=== PATIENT | male | born 1965 | race Caucasian/White ===

== ENCOUNTER 2016-02-26 00:14 | Inpatient (IN) | payer OTHER ==
[~2016-02-26] VITALS: Ht 172.7 cm; Wt 83.0 kg
[2016-02-26] VITALS (11 sets, daily range): BP systolic 110–132; BP diastolic 60–77; PULSE 75–93; RESP 20; Ht 172.7 cm; Wt 83.0 kg
[~2016-02-26 00:14] MED LIST: HTN; [UNRECOGNIZED DRUG - REMARK]
[2016-02-26] MEDS ORDERED: morphine 2 MG INJ IV PRN (03:00)
[2016-02-26] MEDS ORDERED: ONDANSETRON 4 MG INJ IV PRN (03:00)
[2016-02-26] MEDS ORDERED: DOCUSATE SODIUM 100 MG CAP PO PRN (03:00)
[2016-02-26] MEDS ORDERED: ACETAMINOPHEN 325 MG TAB PO PRN (03:00)
[2016-02-26] MEDS ORDERED: NACL 0.9% 3 ML SYG IV SCH (03:00)
[2016-02-26] MEDS ORDERED: HYDROCODONE/APAP (5/325) TAB PO PRN (03:00)
[2016-02-26] MEDS ORDERED: ZOLPIDEM 5 MG TAB PO PRN (03:00)
[2016-02-26] MEDS ORDERED: NITROGLYCERIN (SL) 0.4 MG TAB SL PRN (03:00)
[2016-02-26 06:15] LABS: HEMATOCRIT 22.4 % (42.0-52.0); HEMOGLOBIN 7.2 g/dl (14.0-18.0); MEAN CORPUSCULAR HEMOGLOBIN 21.4 pg (29.0-33.0); MEAN CORPUSCULAR HGB CONC 32.2 g/dl (32.0-37.0); MEAN CORPUSCULAR VOLUME 66.5 fl (82.0-101.0); MEAN PLATELET VOLUME 10.2 fl (7.4-10.4); PLATELET COUNT 160 10^3/UL (140-440); RED BLOOD COUNT 3.36 10^6/ul (4.70-6.10); RED CELL DISTRIBUTION WIDTH 23.4 % (11.5-14.5); UNCORRECTED WBC 4.3 10^3/ul (4.8-10.8); WHITE BLOOD COUNT 4.3 10^3/ul (4.8-10.8)
[2016-02-26 06:26] LABS: ALBUMIN 3.5 g/dl (3.3-4.9); CHLORIDE 107 mmol/L (97-110); SODIUM 142 mmol/L (135-144)
[2016-02-26 06:27] LABS: POTASSIUM 4.3 mmol/L (3.5-5.1)
[2016-02-26 06:28] LABS: CHOLESTEROL 117 mg/dl (100-200); CREATININE 0.92 mg/dl (0.61-1.24)
[2016-02-26 06:29] LABS: ALANINE AMINOTRANSFERASE 39 IU/L (13-69); ALKALINE PHOSPHATASE 71 IU/L (42-121); ASPARTATE AMINO TRANSFERASE 29 IU/L (15-46); BILIRUBIN,INDIRECT 2.3 mg/dl (0-1.1); BILIRUBIN,TOTAL 2.3 mg/dl (0.2-1.3); BLOOD UREA NITROGEN 22 mg/dl (7-20); CALCIUM 8.2 mg/dl (8.4-10.2); CARBON DIOXIDE 25 mmol/L (21-31); GLUCOSE 99 mg/dl (70-220); TOTAL PROTEIN 6.4 g/dl (6.1-8.1); TRIGLYCERIDES 103 mg/dl (0-149)
[2016-02-26 06:30] LABS: CHOL/HDL RATIO 4.8 RATIO; HDL CHOLESTEROL 24 mg/dl (28-71); MAGNESIUM 2.1 mg/dl (1.7-2.5)
[2016-02-26 06:44] LABS: CONDITION 1; LH ANALYZER COMMENTS 1
[2016-02-26 06:54] LABS: ANION GAP 14 (8-16)
[2016-02-26 09:47] LABS: IRON 65 ug/dl (35-150)
[2016-02-26 09:57] LABS: TOTAL IRON BINDING CAPACITY 449 ug/dl (241-421)
--- NOTE | 2016-02-26 10:03 | HP ---
DATE OF ADMISSION: 02/26/2016 TIME: 7:30 a.m. CHIEF COMPLAINT: Chest pain. HISTORY OF PRESENT ILLNESS: The patient is a 50-year-old male with no medical history. The patient presents with pressure-like chest pain in his left sternal border. No radiation. The patient has had no previous such symptoms in the past. He has no cardiac history. He has no reported medical h istory. The patient was at [facility] where he was noted to be pancytopenic with a white count 3 .8, hemoglobin of 5.8. The patient has no history of any known anemia. Denies any GI bleed, any me tavon, any nausea, vomiting. He states for now that his chest pain is resolved. PAST MEDICAL HISTORY: Denies. PAST SURGICAL HISTORY: Denies. HOME MEDICATIONS: None. ALLERGIES: NO KNOWN DRUG ALLERGIES. FAMILY HISTORY: Denies. SOCIAL HISTORY: Denies any alcohol, tobacco, or drug abuse. REVIEW OF SYSTEMS: A 12-point review of systems negative except for that discussed in HPI. PHYSICAL EXAMINATION: VITAL SIGNS: Temperature is 97.8, pulse 75, respiratory rate 20, blood pressure 119/60, saturation 98% on room air. GENERAL: No acute distress, alert and oriented. HEENT: Normocephalic, atraumatic. LUNGS: Clear to auscultation. CARDIOVASCULAR: Regular rate and rhythm. ABDOMEN: Nondistended, nontender, soft. EXTREMITIES: No clubbing, cyanosis, or edema. LABORATORIES: At [facility] show a hemoglobin of 5.8, hematocrit 19.9, MCV is 62, platelets 156. C hemistry: Sodium is 137, potassium is 4.3, chloride is 102, BUN is 21, creatinine is 0.9, glucose 1 23, anion gap 12. DIAGNOSTICS: EKG shows normal sinus rhythm, no signs of ischemia. Chest x-ray shows atelectasis. ASSESSMENT AND PLAN: 1. Chest pain. The patient has no significant risk factors for acute coronary syndrome. His chest pain is likely secondary to his anemia. So far there are no signs of acute coronary syndrome with first troponin at [facility] being negative. Troponin in house here at this time is also negative. We will follow up on the 3rd troponin and will also get a 2D echo. 2. Anemia. Etiology is unclear at this time. He denies any gastrointestinal bleeding. His MCV is low. We will check an iron panel. We will check a stool occult blood. The patient has no history of anemia in the past. 3. Leukopenia. This is mild. We will monitor. We will check human immunodeficiency virus level a nd hepatitis panel. 4. Prophylaxis: Serial compression devices. Dictated By: SAULO KLEIN MD BS/NTS Conf#: [id number] DID#: [id number]
[2016-02-26 10:45] LABS: FOLATE 11.2 ng/ml (2.8-20.0)
[2016-02-26 11:10] LABS: HEPATITIS B CORE ANTIBODY NEGATIVE (NEGATIVE)
[2016-02-26 13:00] LABS: EOSINOPHILS # 0.1 10^3/ul (0.0-0.5); LYMPHOCYTES # 0.9 10^3/ul (0.8-2.9); MONOCYTE # 0.5 10^3/ul (0.3-0.9); NEUTROPHIL # 2.8 10^3/ul (1.6-7.5)
--- NOTE | 2016-02-26 16:46 | RADRPT ---
Echocardiogram Report Patient Name: ROB ELISE Gender: Male Date: 1965 Study Date: 26-Feb-2016 Full Stack Python Developer: Shavon Spicer [facility] Location: [id number] Ref. Physician: SAULO KLEIN Quality: Good Procedures: Transthoracic echocardiogram with complete 2D, M-Mode, and doppler examination. Indications: Chest Pain. 2D/M Mode Doppler Measurement Value Normal Ranges Measurement Value Normal Ranges LVIDd 2D 5.5 3.5 - 5.6 cm AV Peak Noam 1.4 m/sec LVIDs 2D 4.1 2.1 - 4.1 cm AV Peak PG 7.5 mmHg LVPWd 2D 1.0 0.6 - 1.1 cm LVOT Peak Noam 0.9 m/sec IVSd 2D 0.9 0.6 - 1.1 cm LVOT Peak PG 2.9 mmHg AoR Diam 2D 3.0 2.0 - 3.7 cm MV E Peak Noam 0.9 m/sec EDV 2D 148.6 cm3 MV A Peak Noam 0.7 m/sec ESV 2D 71.2 cm3 MV E/A 1.2 LA Dimen 2D 3.9 2.3 - 4.0 cm MV Decel Time 173 msec MV Decel [place] 5 MV E/A 1.2 Findings Left Ventricle: Lower limits of normal systolic function. Normal left ventricular cavity size. Normal left ventricular wall thickness. Ejection fraction is visually estimated at 5055 %. Right Ventricle: Normal right ventricular size. Normal right ventricular systolic function. Left Atrium: The left atrium is normal in size. Right Atrium: The right atrium is normal in size. Mitral Valve: Mitral valve leaflets appear mildly thickened. Mild mitral annular calcification. Trace mitral regurgitation. Aortic Valve: Normal appearance of the aortic valve. No significant aortic stenosis or insufficiency. Tricuspid Valve: Normal appearance and function of the tricuspid valve with trace physiologic regurgitation. Normal right ventricular systolic pressure. Pericardium: Normal pericardium with no significant pericardial effusion. Aorta: Normal aortic root. IVC: Normal size and normal respiratory collapse consistent with normal right atrial pressure. Conclusions 1.The left ventricle is normal in size with lower limits of normal systolic function. 2.Estimated left ventricular ejection fraction of 50-55%. Electronically Signed By: Wilber Galvez 26-Feb-2016 16:45:48 -0800 Patient Name: ROB ELISE Study Date: 26-Feb-2016 [id number]
--- NOTE | 2016-02-26 17:09 | CONS ---
Date/Time of Note Date/Time of Note DATE: 02/26/16 TIME: 17:05 Consult Date/Type/Reason Admit Date/Time Feb 26, 2016 at 00:14 Initial Consult Date Type of Consultation: Internal medicine Subjective better today no chest pain no shortness of breath. Objective Vital Signs Date Time Temp Pulse Resp B/P Pulse Ox O2 Delivery O2 Flow Rate FiO2 02/26/16 16:19 83 02/26/16 12:27 97.5 20 110/62 98 02/26/16 01:00 Room Air Intake and Output 02/25/16 02/25/16 02/26/16 15:00 23:00 07:00 Intake Total 100 ml Output Total 500 ml Balance -400 ml Results/Medications Result Diagram: 02/26/1617 02/26/16 0905 Results 24 hrs Laboratory Tests Test 02/26/16 05:17 02/26/16 09:05 02/26/16 12:05 Blood Morphology Comment Differential Comment MANUAL DIFF Eosinophils # 0.1 Eosinophils % 2.0 Hematocrit 22.4 L Hemoglobin 7.2 L Hemoglobin A1c 6.1 H Lymphocytes # 0.9 Lymphocytes % 21.0 Mean Corpuscular Hemoglobin 21.4 L Mean Corpuscular Hemoglobin Concent 32.2 Mean Corpuscular Volume 66.5 L Mean Platelet Volume 10.2 Monocytes # 0.5 Monocytes % 12.0 H Neutrophils # 2.8 Neutrophils % 65.0 Platelet Count 160 Red Blood Count 3.36 L Red Cell Distribution Width 23.4 H Troponin I < 0.010 < 0.010 White Blood Count 4.3 L Alanine Aminotransferase (ALT/SGPT) 39 Albumin 3.5 Albumin/Globulin Ratio 1.20 Alkaline Phosphatase 71 Anion Gap 14 Aspartate Amino Transf (AST/SGOT) 29 Blood Urea Nitrogen 22 H Calcium Level 8.2 L Carbon Dioxide Level 25 Chloride Level 107 Cholesterol Level 117 Cholesterol/HDL Ratio 4.8 Creatinine 0.92 Direct Bilirubin 0.00 Folate 11.2 Globulin 2.90 Glucose Level 99 HDL Cholesterol 24 L HIV (1&2) Antibody NEGATIVE Hepatitis B Core Total Antibody NEGATIVE Hepatitis B Surface Antigen NEGATIVE Hepatitis C Antibody NEGATIVE Indirect Bilirubin 2.3 H Iron Level 65 LDL Cholesterol, Calculated 72 Magnesium Level 2.1 Percent Iron Saturation 14 L Potassium Level 4.3 Sodium Level 142 Total Bilirubin 2.3 H Total Iron Binding Capacity 449 H Total Protein 6.4 Triglycerides Level 103 Vitamin B12 Level 295 Medications Current Medications Ondansetron HCl (Zofran Inj) 4 mg Q6H PRN IV NAUSEA AND/OR VOMITING; Start 02/25 at 03:00 Acetaminophen (Tylenol Tab) 650 mg Q6H PRN PO PAIN LEVEL 1-3 OR FEVER; Start at 03:00 Acetaminophen/ Hydrocodone Bitart ([place] (5/325)) 1 tab Q6H PRN PO MODERATE PAIN LEVEL 4-6; Start 02/26/16 at 03:00 Morphine Sulfate (morphine) 2 mg Q4H PRN IV SEVERE PAIN LEVEL 7-10; Start at 03:00 Docusate Sodium (Colace) 100 mg Q12H PRN PO CONSTIPATION; Start 02/26/16 at 03: 00 Zolpidem Tartrate (Ambien) 5 mg QHS PRN PO SLEEP; Start 02/26/16 at 03:00 Nitroglycerin (Nitroglycerin (Sl Tab) 0.4 Mg) 1 tab Q5M PRN SL CHEST PAIN; Start 02/26/16 at 03:00 Assessment/Plan Chief Complaint/Hosp Course ASSESSMENT AND PLAN: 1. Chest pain. negative troponins. likely demand ischemia from significant anemia. echo done. 2. Anemia. suggestive of iron def anemia. No prior hx of anemia per patient. denies xs etoh, no NSAIDS. GI consult called. Will likely need EGD / Colonoscopy. 3. Leukopenia. This is mild. We will monitor. We will check human immunodeficiency virus level and hepatitis panel. 4. Prophylaxis: Serial compression devices. Problems: VANESSA PEREZ MD, [facility] Feb 26, 2016 17:09
[2016-02-26] MEDS ORDERED: MAGNESIUM CITRATE 300 ML BTL PO ONE (17:30)
[2016-02-26] MEDS ORDERED: POLYETHYLENE GLYCOL 3350 119 GM POWDER PO ONE (18:30)
--- NOTE | 2016-02-26 21:02 | CONS ---
Date/Time of Note Date/Time of Note DATE: 02/26/16 TIME: 20:56 Assessment/Plan Assessment/Plan Additional Assessment/Plan ASSESSMENT: Severe anemia r/o GI bleeding Chest pain/negative troponins PLAN: EGD/COLONOSCOPY Consultation Date/Type/Reason Admit Date/Time Feb 26, 2016 at 00:14 Hx of Present Illness 50-year-old male hospitalized with chest pain, workup disclosed no acute coronary event. The patient is found to have significant anemia and therefore demand ischemia is the operating diagnosis. We are requested to evaluate anemia. The patient denies overt gastrointestinal bleeding, he is a poor historian. He denies any significant gastrointestinal symptomatology. At the present time the patient is comfortable in his bed. He will be evaluated with endoscopy and colonoscopy. The procedures were explained to the patient in detail including risks, benefits and alternatives. He is agreeable to proceed PAST MEDICAL HISTORY: Denies. Constitutional: improved, no complaints Respiratory: no complaints Cardiovascular: chest pain (Acute coronary event has been ruled out) Gastrointestinal: no complaints, No blood, No constipation, No diarrhea, No nausea, No vomiting Genitourinary: no complaints Musculoskeletal: no complaints Past Medical History Medical History: no pertinent history Past Surgical History Past Surgical Hx: no surgical history Family History Significant Family History: no pertinent family hx Social History Alcohol Use: rarely Smoking Status: Never smoker Drug Use: none Exam/Review of Systems Vital Signs Vitals Vital Signs Date Time Temp Pulse Resp B/P Pulse Ox O2 Delivery O2 Flow Rate FiO2 02/26/16 20:35 98.3 96 132/63 02/26/16 12:27 20 98 02/26/16 01:00 Room Air Intake and Output 02/25/16 02/25/16 02/26/16 15:00 23:00 07:00 Intake Total 100 ml Output Total 500 ml Balance -400 ml Exam Constitutional: alert, oriented, well developed Psych: nl mood/affect, no complaints Head: atraumatic, normocephalic Eyes: EOMI, PERRL, nl conjunctiva, nl lids, nl sclera ENMT: nl external ears & nose, nl lips & teeth, nl nasal mucosa & septum Neck: non-tender, supple Respiratory: clear to auscultation, normal air movement Cardiovascular: nl pulses, regular rate and rhythm Gastrointestinal: nl liver, spleen, non-tender, soft Musculoskeletal: nl extremities to inspection, nl gait and stance Extremities: normal pulses 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, nl mental status, nl speech, nl strength Skin: nl turgor, No rash or lesions Lymph: nl lymph nodes Results Result Diagram: 02/26/1651602/26/16 0905 Results 24 hrs Laboratory Tests Test 02/26/16 05:17 02/26/16 09:05 02/26/16 12:05 Blood Morphology Comment Differential Comment MANUAL DIFF Eosinophils # 0.1 Eosinophils % 2.0 Hematocrit 22.4 L Hemoglobin 7.2 L Hemoglobin A1c 6.1 H Lymphocytes # 0.9 Lymphocytes % 21.0 Mean Corpuscular Hemoglobin 21.4 L Mean Corpuscular Hemoglobin Concent 32.2 Mean Corpuscular Volume 66.5 L Mean Platelet Volume 10.2 Monocytes # 0.5 Monocytes % 12.0 H Neutrophils # 2.8 Neutrophils % 65.0 Platelet Count 160 Red Blood Count 3.36 L Red Cell Distribution Width 23.4 H Troponin I < 0.010 < 0.010 White Blood Count 4.3 L Alanine Aminotransferase (ALT/SGPT) 39 Albumin 3.5 Albumin/Globulin Ratio 1.20 Alkaline Phosphatase 71 Anion Gap 14 Aspartate Amino Transf (AST/SGOT) 29 Blood Urea Nitrogen 22 H Calcium Level 8.2 L Carbon Dioxide Level 25 Chloride Level 107 Cholesterol Level 117 Cholesterol/HDL Ratio 4.8 Creatinine 0.92 Direct Bilirubin 0.00 Folate 11.2 Globulin 2.90 Glucose Level 99 HDL Cholesterol 24 L HIV (1&2) Antibody NEGATIVE Hepatitis B Core Total Antibody NEGATIVE Hepatitis B Surface Antigen NEGATIVE Hepatitis C Antibody NEGATIVE Indirect Bilirubin 2.3 H Iron Level 65 LDL Cholesterol, Calculated 72 Magnesium Level 2.1 Percent Iron Saturation 14 L Potassium Level 4.3 Sodium Level 142 Total Bilirubin 2.3 H Total Iron Binding Capacity 449 H Total Protein 6.4 Triglycerides Level 103 Vitamin B12 Level 295 Medications Medications Current Medications Ondansetron HCl (Zofran Inj) 4 mg Q6H PRN IV NAUSEA AND/OR VOMITING; Start 02/25 at 03:00 Acetaminophen (Tylenol Tab) 650 mg Q6H PRN PO PAIN LEVEL 1-3 OR FEVER; Start at 03:00 Acetaminophen/ Hydrocodone Bitart ([place] (5/325)) 1 tab Q6H PRN PO MODERATE PAIN LEVEL 4-6; Start 02/26/16 at 03:00 Morphine Sulfate (morphine) 2 mg Q4H PRN IV SEVERE PAIN LEVEL 7-10; Start at 03:00 Docusate Sodium (Colace) 100 mg Q12H PRN PO CONSTIPATION; Start 02/26/16 at 03: 00 Zolpidem Tartrate (Ambien) 5 mg QHS PRN PO SLEEP; Start 02/26/16 at 03:00 Nitroglycerin (Nitroglycerin (Sl Tab) 0.4 Mg) 1 tab Q5M PRN SL CHEST PAIN; Start 02/26/16 at 03:00 LANDON IRELAND MD Feb 26, 2016 21:02
[2016-02-26] MEDS ORDERED: BISACODYL (EC) 5 MG TAB PO ONE (21:30)
[2016-02-27] VITALS (11 sets, daily range): BP systolic 123–141; BP diastolic 67–92; PULSE 79–82; RESP 20
[2016-02-27] MEDS ORDERED: POLYETHYLENE GLYCOL 3350 119 GM POWDER PO ONE (06:00)
[2016-02-27] MEDS ORDERED: BISACODYL (EC) 5 MG TAB PO ONE (08:00)
--- NOTE | 2016-02-27 14:04 | PN ---
Date/Time of Note Date/Time of Note DATE: 02/27/16 TIME: 14:01 Assessment/Plan VTE Prophylaxis VTE Prophylaxis Intervention: SCD's Lines/Catheters IV Catheter Type (from Nrsg): Peripheral IV Assessment/Plan Assessment/Plan 1. Symptomatic anemia, r/o hemolysis, check haptoglobin, peripheral smear, may need hematology consult 2. Chest pain, atypical, likely musculoskeletal, resolved Subjective 24 Hr Interval Summary Free Text/Dictation no chest pain today. exertional shortness of braeth for one week or so. Exam/Review of Systems Vital Signs Vitals Vital Signs Date Time Temp Pulse Resp B/P Pulse Ox O2 Delivery O2 Flow Rate FiO2 02/27/16 12:32 82 02/27/16 11:59 98.0 20 135/88 98 02/26/16 01:00 Room Air Intake and Output 02/26/16 02/26/16 02/27/16 15:00 23:00 07:00 Intake Total 900 ml 3000 ml Output Total 800 ml 1200 ml Balance 100 ml 1800 ml Exam Constitutional: alert, oriented, well developed Psych: nl mood/affect, no complaints Head: atraumatic, normocephalic Eyes: EOMI, nl conjunctiva, nl lids, nl sclera ENMT: mucosa pink and moist, nl external ears & nose, nl lips & teeth, nl nasal mucosa & septum Neck: non-tender, supple Respiratory: clear to auscultation, normal air movement Cardiovascular: nl pulses, regular rate and rhythm Gastrointestinal: nl liver, spleen, non-tender, soft Genitourinary - Male: nl penis, nl scrotum Musculoskeletal: nl extremities to inspection, nl gait and stance Extremities: normal pulses 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, nl mental status, nl speech, nl strength Skin: nl turgor, rash or lesions Results Result Diagram: 02/26/16 0517 02/26/16 0905 Results 24 hrs Laboratory Tests Test 02/27/16 03:00 Stool Occult Blood POSITIVE Medications Medications Current Medications Ondansetron HCl (Zofran Inj) 4 mg Q6H PRN IV NAUSEA AND/OR VOMITING; Start 02/25 at 03:00 Acetaminophen (Tylenol Tab) 650 mg Q6H PRN PO PAIN LEVEL 1-3 OR FEVER; Start at 03:00 Acetaminophen/ Hydrocodone Bitart ([place] (5/325)) 1 tab Q6H PRN PO MODERATE PAIN LEVEL 4-6; Start 02/26/16 at 03:00 Morphine Sulfate (morphine) 2 mg Q4H PRN IV SEVERE PAIN LEVEL 7-10; Start at 03:00 Docusate Sodium (Colace) 100 mg Q12H PRN PO CONSTIPATION; Start 02/26/16 at 03: 00 Zolpidem Tartrate (Ambien) 5 mg QHS PRN PO SLEEP; Start 02/26/16 at 03:00 Nitroglycerin (Nitroglycerin (Sl Tab) 0.4 Mg) 1 tab Q5M PRN SL CHEST PAIN; Start 02/26/16 at 03:00 KEV DUMAS MD Feb 27, 2016 14:04
[2016-02-27] MEDS ORDERED: MAGNESIUM CITRATE 300 ML BTL PO ONE (18:30)
[2016-02-28] VITALS (20 sets, daily range): BP systolic 114–142; BP diastolic 62–90; PULSE 75–99; RESP 12–20
[2016-02-28 07:17] LABS: HEMATOCRIT 27.4 % (42.0-52.0); HEMOGLOBIN 8.7 g/dl (14.0-18.0); MEAN CORPUSCULAR HGB CONC 31.7 g/dl (32.0-37.0); MEAN CORPUSCULAR VOLUME 66.3 fl (82.0-101.0); MEAN PLATELET VOLUME 9.7 fl (7.4-10.4); PLATELET COUNT 197 10^3/UL (140-440); RED BLOOD COUNT 4.14 10^6/ul (4.70-6.10); RED CELL DISTRIBUTION WIDTH 24.4 % (11.5-14.5); UNCORRECTED WBC 4.3 10^3/ul (4.8-10.8); WHITE BLOOD COUNT 4.3 10^3/ul (4.8-10.8)
[2016-02-28 07:23] LABS: CONDITION 1; LH ANALYZER COMMENTS 1
[2016-02-28 09:25] LABS: LYMPHOCYTES # 0.6 10^3/ul (0.8-2.9); MONOCYTE # 0.3 10^3/ul (0.3-0.9); NEUTROPHIL # 3.4 10^3/ul (1.6-7.5)
[2016-02-28 09:26] LABS: ANISOCYTOSIS 2+; HYPOCHROMASIA 2+; MICROCYTOSIS 2+
[2016-02-28 13:17] LABS: TOTAL PROTEIN 7.2 g/dl (6.1-8.1)
[2016-02-28] MEDS ORDERED: LIDOCAINE 2% (SDV) 5 ML INJ ONE (17:23)
[2016-02-28] MEDS ORDERED: PROPOFOL 0 ML ONE (17:23)
[2016-02-28] MEDS ORDERED: MIDAZOLAM 1 MG/ML 2 ML INJ ONE (17:23)
[2016-02-28] MEDS ORDERED: FENTAnyl 50 MCG/ML VIAL ONE (17:54)
[2016-02-28] MEDS ORDERED: PROPOFOL 20 ML ONE ×2 (17:54)
[2016-02-28] MEDS ORDERED: EPINEPHrine 0.1 MG/ML SYG ONE ×3 (17:58→18:03)
--- NOTE | 2016-02-28 18:19 | CONS ---
Date/Time of Note Date/Time of Note DATE: 02/28/16 TIME: 18:10 Assessment/Plan Assessment/Plan Chief Complaint/Hosp Course Patient is a 50 year old male with symptomatic anemia, Hgb 7.2. - Iron panel consistent with iron deficiency with Fe 65, TIBC 449, %sat 14%. Will order ferritin. Severe microcytosis with elevated RDW also supports iron deficiency anemia. Agree with GI recommendation for endoscopy and colonoscopy - f/u final report, path. - Patient did have elevated indirect bilirubin on 02/26/16 though today resolved. Most likely this is due hemolysis of transfused blood (patient received 2 units of pRBCs for Hgb 5.5 at [facility] prior to transfer). For good measure, will check LDH, haptoglobin, reticulocyte count and Urmila' test (though MCHC 31.7, often see values of close to 36 in autoimmune hemolytic anemia suggestive of spherocytosis) though doubt autoimmune or microangiopathic hemolytic anemia. - Will order peripheral smear to be evaluated by pathology to evaluate for schistocytes, spherocytes, dysplasia, etc. Less likely to be microangiopathic hemolytic anemia given normal platelet count. f/u smear, retic count, LDH, haptoglobin. - Vitamin B12, folate WNL - Leukopenia noted. HIV, Hep B/C negative. Will review peripheral smear. Also consider US abdomen to evaluate for cirrhosis. If remains low, can f/u as an outpatient and consider bone marrow biopsy. Will continue to follow Problems: Consultation Date/Type/Reason Admit Date/Time Feb 26, 2016 at 00:14 Date of Consultation: Feb 28, 2016 Type of Consultation: Hematology/Oncology Hx of Present Illness 50-year-old male hospitalized with chest pain, workup disclosed no acute coronary event. The patient is found to have significant anemia and therefore demand ischemia is the operating diagnosis. The patient denies overt gastrointestinal bleeding, he is a poor historian. He denies any significant gastrointestinal symptomatology. He was seen by GI just underwent endoscopy and colonoscopy. Prelim report of large gastric ulcer, colonoscopy negative. F /u final results/path. Patient somewhat groggy from procedure. Constitutional: improved, no complaints Respiratory: no complaints Cardiovascular: chest pain (Acute coronary event has been ruled out) Gastrointestinal: no complaints, No blood, No constipation, No diarrhea, No nausea, No vomiting Genitourinary: no complaints Musculoskeletal: no complaints Psychological: nl mood/affect, no complaints Past Medical History Medical History: no pertinent history Past Surgical History Past Surgical Hx: no surgical history Family History Significant Family History: no pertinent family hx Social History Alcohol Use: rarely Smoking Status: Never smoker Drug Use: none Exam/Review of Systems Vital Signs Vitals Vital Signs Date Time Temp Pulse Resp B/P Pulse Ox O2 Delivery O2 Flow Rate FiO2 02/28/16 16:39 99.1 84 12 142/86 99 Room Air Intake and Output 02/27/16 02/27/16 02/28/16 15:00 23:00 07:00 Intake Total 350 ml Balance 350 ml Exam Constitutional: well developed Psych: no complaints Head: normocephalic Neck: supple Respiratory: clear to auscultation Cardiovascular: regular rate and rhythm Gastrointestinal: non-tender, soft Musculoskeletal: nl extremities to inspection Results Result Diagram: 02/28/16 0655 02/26/16 0905 Results 24 hrs Laboratory Tests Test 02/28/16 06:55 Alanine Aminotransferase (ALT/SGPT) 46 Albumin 4.0 Alkaline Phosphatase 95 Anisocytosis 2+ Aspartate Amino Transf (AST/SGOT) 43 Blood Morphology Comment Differential Comment MANUAL DIFF Direct Bilirubin 0.00 Hematocrit 27.4 #L Hemoglobin 8.7 #L Hypochromasia 2+ Indirect Bilirubin 1.0 Lymphocytes # 0.6 L Lymphocytes % 13.0 L Mean Corpuscular Hemoglobin 21.0 L Mean Corpuscular Hemoglobin Concent 31.7 L Mean Corpuscular Volume 66.3 L Mean Platelet Volume 9.7 Microcytosis 2+ Monocytes # 0.3 Monocytes % 8.0 Neutrophils # 3.4 Neutrophils % 79.0 H Platelet Count 197 # Red Blood Count 4.14 #L Red Cell Distribution Width 24.4 H Total Bilirubin 1.0 Total Protein 7.2 White Blood Count 4.3 L Medications Medications Current Medications Ondansetron HCl (Zofran Inj) 4 mg Q6H PRN IV NAUSEA AND/OR VOMITING; Start 02/25 at 03:00 Acetaminophen (Tylenol Tab) 650 mg Q6H PRN PO PAIN LEVEL 1-3 OR FEVER; Start at 03:00 Acetaminophen/ Hydrocodone Bitart ([place] (5/325)) 1 tab Q6H PRN PO MODERATE PAIN LEVEL 4-6; Start 02/26/16 at 03:00 Morphine Sulfate (morphine) 2 mg Q4H PRN IV SEVERE PAIN LEVEL 7-10; Start at 03:00 Docusate Sodium (Colace) 100 mg Q12H PRN PO CONSTIPATION; Start 02/26/16 at 03: 00 Zolpidem Tartrate (Ambien) 5 mg QHS PRN PO SLEEP; Start 02/26/16 at 03:00 Nitroglycerin (Nitroglycerin (Sl Tab) 0.4 Mg) 1 tab Q5M PRN SL CHEST PAIN; Start 02/26/16 at 03:00 ALEXSANDER GARCIA MD Feb 28, 2016 18:18
[2016-02-28] MEDS ORDERED: ONDANSETRON 4 MG INJ IV PRN (18:30)
[2016-02-28] MEDS ORDERED: FENTAnyl 50 MCG/ML VIAL IV PRN (18:30)
[2016-02-28] MEDS ORDERED: DIPHENHYDRAMINE 50 MG INJ IV PRN (18:30)
[2016-02-28] MEDS ORDERED: OXYCODONE/ACETAMINOPHEN (5/325) TAB PO PRN (18:30)
[2016-02-28] MEDS ORDERED: MEPERIDINE 25 MG INJ IV PRN (18:30)
[2016-02-28] MEDS: PANTOPRAZOLE IV 80 MG in SOD CHLORIDE 0.9% 100 ML IV SCH (19:56)
--- NOTE | 2016-02-28 22:44 | GILP ---
DATE OF PROCEDURE: NAME OF PROCEDURE: Colonoscopy to cecum. SURGEON: Jesse Mendoza MD HISTORY AND INDICATIONS: The patient is being evaluated for severe anemia. PREMEDICATION: Monitored anesthesia care by anesthesiologist. TECHNIQUE: After informed consent, with the patient/relatives understanding the procedure, its nick cations potential risks and complications, including but not limited to: allergic reaction, bleeding , perforation, infection, missed lesions and after all pertinent questions were answered to the wesley ent's satisfaction, the patient/relatives signed the witnessed informed consent. Following this, premedication was administered slowly IV push by under careful cardiovascular and re spiratory monitoring with pulse oximetry, automatic blood pressure and mammal keeper. Once the sedativ e effect was achieved, the patient was placed in the left lateral decubitus position, digital rectal examination was performed. The colonoscope was then introduced and advanced under visual control th roughout all segments of the colon including: the rectum, sigmoid, descending colon, splenic flexure , transverse colon, hepatic flexure, ascending colon and finally reaching the cecum which was clearl y identified by transillumination, finger indentation and the ileocecal valve. Careful examination o f the mucosa of the lower gastrointestinal tract both on insertion as well as withdrawal of the inst rument disclosed the following findings: Rectal Examination: No evidence of perirectal disease, no masses. Colonic Mucosa: The colonic mucosa unremarkable throughout. The ileocecal valve was clearly identi fied and appears unremarkable. The instrument was withdrawn, re-examining the mucosa in detail. No additional abnormalities are noted with exception of moderate-sized internal hemorrhoids. The instrument was then withdrawn. The patient tolerated the procedure well and was transferred out of the Endoscopy Suite awake and in good condition to continue recovery under observation. IMPRESSION: 1. Normal colonic mucosa to cecum. 2. Moderate-sized internal hemorrhoids. PLAN: The patient will be continued on present regimen. Colonoscopy in 10 years is advisable. [facility] Hemoccult stool testing is also recommended. Dictated By: JESSE MENDOZA MS/SOCORRO Conf#: [id number] DID#: [id number]
--- NOTE | 2016-02-28 23:57 | GILP ---
DATE OF PROCEDURE: NAME OF PROCEDURE: Esophagogastroduodenoscopy with snare polypectomy x2 with endoclip placement x2 and with epinephrine submucosal injection. SURGEON: Jesse Mendoza MD HISTORY AND INDICATIONS: The patient being evaluated for anemia. PREMEDICATION: Monitored anesthesia care by anesthesiologist. INSTRUMENT USED: Olympus panendoscope. TECHNIQUE: After informed consent, with the patient/relatives understanding the procedure, its nick cations, potential risks and complications, including but not limited to: allergic reaction, bleedin g, perforation or infection, and after all pertinent questions were answered to the patient's satisf action, the patient/relatives signed witnessed informed consent. Following this, premedication was administered slowly IV push under careful cardiovascular and respi ratory monitoring with pulse oximetry, automatic blood pressure and site monitor. Once the sedative effect was achieved the patient was place in the left lateral decubitus, the panen doscope was introduced and advanced under visual control. Careful examination of the upper gastrointestinal tract, both on insertion as well as withdrawal of the instrument disclosed the following findings: ESOPHAGUS: The mucosa of the entire esophagus appears within normal limits. There is no evidence of esophagitis, varices, neoplasm or stricture. No hiatal hernia identified. STOMACH: Upon entrance to stomach, air was insufflated. The gastric drummond distended normally. A v yi large 4 cm pedunculated polyp was noted in the fundus of the stomach. A second polyp measuring 10 mm was noted in the midbody of the stomach. The remainder of the gastric mucosa was unremarkable. PYLORUS: The pylorus appears patent and within normal limits with no evidence of gastric outlet obs truction. DUODENUM: The duodenal mucosa was carefully examined in the duodenal bulb as well as the second por tion of the duodenum and appears unremarkable with no evidence of duodenitis, ulcer or neoplasm. At this point, the instrument was brought back into the area of the stomach. The smaller polyp was removed with a polypectomy snare, and following this, the larger polyp was engaged. This was somewh at difficult due to its position, but we were able to secure the pedicle of the polyp and transect i t with a combination of cutting and cautery current with Erbe device. As a precautionary measure be cause of the what appeared to be exposed vessels although no active bleeding was present, 2 clips we re placed in the polypectomy site, and the area was injected with submucosal epinephrine. No residu al bleeding was noted. We then introduced a net and retrieved the tissue. Unfortunately, the tissu e was extremely friable and fragmented. We removed as much as possible. No residual bleeding or ev idence of complication was present. The instrument was then withdrawn. The patient tolerated the procedure well and was transferred out of the endoscopy suite awake and in good condition to continue recovery under observation. IMPRESSION: 1. Large 4 cm pedunculated polyp in the fundus, status post snare polypectomy, endoclip placement x 2 and epinephrine injection in the area. 2. A 10 mm polyp in the body of the stomach, post snare polypectomy. Tissue was retrieved in a fra gmented fashion. 3. Otherwise normal esophagogastroduodenoscopy. 4. These lesions are clearly a very likely explanation to the patient's severe anemia. PLAN: The patient will be placed on PPI double dose and will be kept on a clear liquid diet with cl ose H and H monitoring. Further recommendation will depend on his clinical course as well as review of pathology. Re-evaluation in 8 weeks is advisable. Dictated By: JESSE MENDOZA MS/SOCORRO Conf#: [id number] DID#: [id number]
[2016-02-29] VITALS (10 sets, daily range): BP systolic 112–134; BP diastolic 73–85; PULSE 88–94; RESP 19–20
[2016-02-29 02:07] LABS: HEMATOCRIT 28.7 % (42.0-52.0)
[2016-02-29] MEDS: PANTOPRAZOLE IV 80 MG in SOD CHLORIDE 0.9% 100 ML IV SCH ×2 (04:31→14:30)
[2016-02-29 07:39] LABS: RETICULOCYTE COUNT % 2.3 % (0.5-1.5)
[2016-02-29 07:49] LABS: IRON 21 ug/dl (35-150)
[2016-02-29 07:56] LABS: ALBUMIN 4.1 g/dl (3.3-4.9)
[2016-02-29 07:57] LABS: POTASSIUM 4.6 mmol/L (3.5-5.1)
[2016-02-29 07:59] LABS: ALBUMIN/GLOBULIN RATIO 1.1; CREATININE 0.99 mg/dl (0.61-1.24); TOTAL IRON BINDING CAPACITY 491 ug/dl (241-421); TOTAL PROTEIN 7.8 g/dl (6.1-8.1)
[2016-02-29 08:03] LABS: HEMATOCRIT 29.1 % (42.0-52.0); MEAN CORPUSCULAR HEMOGLOBIN 20.7 pg (29.0-33.0); MEAN CORPUSCULAR HGB CONC 30.9 g/dl (32.0-37.0); MEAN CORPUSCULAR VOLUME 67.1 fl (82.0-101.0); MEAN PLATELET VOLUME 8.8 fl (7.4-10.4); PLATELET COUNT 168 10^3/UL (140-440); RED BLOOD COUNT 4.33 10^6/ul (4.70-6.10); RED CELL DISTRIBUTION WIDTH 24.5 % (11.5-14.5); UNCORRECTED WBC 5.6 10^3/ul (4.8-10.8)
[2016-02-29 08:04] LABS: CONDITION 1; LH ANALYZER COMMENTS 1
[2016-02-29 08:24] LABS: FERRITIN 8.6 ng/ml (11.1-264.0)
[2016-02-29 09:05] LABS: LYMPHOCYTES # 0.8 10^3/ul (0.8-2.9); MONOCYTE # 0.4 10^3/ul (0.3-0.9); NEUTROPHIL # 4.4 10^3/ul (1.6-7.5)
[2016-02-29 09:06] LABS: ANISOCYTOSIS 2+; HYPOCHROMASIA 2+; MICROCYTOSIS 2+
--- NOTE | 2016-02-29 13:39 | CONS ---
Date/Time of Note Date/Time of Note DATE: 02/29/16 TIME: 12:06 Assessment/Plan Assessment/Plan Chief Complaint/Hosp Course Patient is a 50 year old male with symptomatic anemia, Hgb 7.2. - Repeat iron panel again consistent with iron deficiency with Fe 21, TIBC 491, %sat 4%, ferritin 8.6. Severe microcytosis with elevated RDW also supports iron deficiency anemia. Patient underwent EGD on 02/28/16 with a large 4 cm pedunculated polyp in the fundus status post snare polypectomy, endoclip placement x 2 and epinephrine injection in the area, and 10 mm polyp in the body of the stomach, status post snare polypectomy; these lesions were thought clearly a very likely explanation for severe anemia. F/U path. - Patient can take oral iron and if not responsive, can consider IV iron and f/ u with heme if needed. Patient has f/u with Dr. Mendoza. - Patient did have elevated indirect bilirubin on 02/26/16 though resolved and again elevated today. Possibly previously due to hemolysis of transfused blood (patient received 2 units of pRBCs for Hgb 5.5 at [facility] prior to transfer) or possibly Gilbert's? LDH 470 (WNL), haptoglobin pending, reticulocyte count 99K, inappropriately low, Urmila negative. - Peripheral smear reviewed by pathologist, no blasts, hypochromic microcytic, no spherocytes or schistocytes so not consistent microangiopathic hemolytic or autoimmune hemolytic anemia. - Vitamin B12, folate WNL - Leukopenia noted. HIV, Hep B/C negative. No blasts on peripheral smear Also consider US abdomen to evaluate for cirrhosis. If remains low, can f/u as an outpatient and consider bone marrow biopsy. Will continue to follow Problems: Consultation Date/Type/Reason Admit Date/Time Feb 26, 2016 at 00:14 Initial Consult Date 02/28/16 Type of Consultation: Hematology/Oncology 24 HR Interval Summary Free Text/Dictation Patient going home, no further bleeding. Exam/Review of Systems Vital Signs Vitals Vital Signs Date Time Temp Pulse Resp B/P Pulse Ox O2 Delivery O2 Flow Rate FiO2 02/29/16 12:04 91 02/29/16 11:01 98.6 20 130/77 93 02/28/16 18:50 Nasal Cannula 2.0 Intake and Output 02/28/16 02/28/16 02/29/16 15:00 23:00 07:00 Intake Total 0 ml Balance 0 ml Exam Constitutional: alert, oriented Psych: no complaints Head: atraumatic, normocephalic Neck: supple Respiratory: clear to auscultation Cardiovascular: regular rate and rhythm Gastrointestinal: non-tender Musculoskeletal: nl extremities to inspection Results Result Diagram: 02/29/16 0650 02/29/16 0635 Results 24 hrs Laboratory Tests Test 02/29/16 00:38 02/29/16 06:35 02/29/16 06:50 Hematocrit 28.7 L 29.1 L Hemoglobin 9.0 L 9.0 L Absolute Reticulocyte Count 0.099 Alanine Aminotransferase (ALT/SGPT) 47 Albumin 4.1 Albumin/Globulin Ratio 1.10 Alkaline Phosphatase 108 Anion Gap 19 H Aspartate Amino Transf (AST/SGOT) 39 Blood Urea Nitrogen 29 H Calcium Level 9.0 Carbon Dioxide Level 26 Chloride Level 101 Creatinine 0.99 Direct Bilirubin 0.00 Ferritin 8.6 L Globulin 3.70 H Glucose Level 94 Indirect Bilirubin 2.0 H Iron Level 21 L Lactate Dehydrogenase 470 Percent Iron Saturation 4 L Percent Reticulocyte Count 2.3 H Potassium Level 4.6 Sodium Level 141 Total Bilirubin 2.0 H Total Iron Binding Capacity 491 H Total Protein 7.8 Anisocytosis 2+ Blood Morphology Comment Differential Comment MANUAL DIFF Hypochromasia 2+ Large Platelets OCCASIONAL Lymphocytes # 0.8 Lymphocytes % 15.0 Mean Corpuscular Hemoglobin 20.7 L Mean Corpuscular Hemoglobin Concent 30.9 L Mean Corpuscular Volume 67.1 L Mean Platelet Volume 8.8 Microcytosis 2+ Monocytes # 0.4 Monocytes % 7.0 Neutrophils # 4.4 Neutrophils % 78.0 H Platelet Count 168 Red Blood Count 4.33 L Red Cell Distribution Width 24.5 H White Blood Count 5.6 # Medications Medications Current Medications Ondansetron HCl (Zofran Inj) 4 mg Q6H PRN IV NAUSEA AND/OR VOMITING; Start 02/25 at 03:00 Acetaminophen (Tylenol Tab) 650 mg Q6H PRN PO PAIN LEVEL 1-3 OR FEVER; Start at 03:00 Acetaminophen/ Hydrocodone Bitart ([place] (5/325)) 1 tab Q6H PRN PO MODERATE PAIN LEVEL 4-6; Start 02/26/16 at 03:00 Morphine Sulfate (morphine) 2 mg Q4H PRN IV SEVERE PAIN LEVEL 7-10; Start at 03:00 Docusate Sodium (Colace) 100 mg Q12H PRN PO CONSTIPATION; Start 02/26/16 at 03: 00 Zolpidem Tartrate (Ambien) 5 mg QHS PRN PO SLEEP; Start 02/26/16 at 03:00 Nitroglycerin 1 tab 1 tab Q5M PRN SL CHEST PAIN; Start 02/26/16 at 03:00 Pantoprazole/ Sodium Chloride (Protonix Iv/NS) 100 ml @ 10 mls/hr Q10H IV Last administered on 02/29/16t 04:31; Admin Dose 10 MLS/HR; Start 02/28/16 at 18 :30 TOALEXSANDER MD Feb 29, 2016 13:37
--- NOTE | 2016-02-29 13:42 | DS ---
Date/Time of Note Date/Time of Note DATE: 02/29/16 TIME: 13:34 Discharge Summary Admission/Discharge Info Admit Date/Time Feb 26, 2016 at 00:14 Discharge Date/Time Final Diagnosis 1. Iron deficiency anemia from slow upper GI bleeding, stable, iron supplement, follow up with PCP 2. Upper GI bleeding with gastric polyps, no active bleeding, PPI, follow up with GI 3. Chest pain, atypical, likely musculoskeletal, resolved Patient Condition: Stable Procedures G.I. LAB PROCEDURE DATE OF PROCEDURE: NAME OF PROCEDURE: Esophagogastroduodenoscopy with snare polypectomy x2 with endoclip placement x2 and with epinephrine submucosal injection. SURGEON: Landon Mendoza MD HISTORY AND INDICATIONS: The patient being evaluated for anemia. PREMEDICATION: Monitored anesthesia care by anesthesiologist. INSTRUMENT USED: Olympus panendoscope. TECHNIQUE: After informed consent, with the patient/relatives understanding the procedure, its indications, potential risks and complications, including but not limited to: allergic reaction, bleeding, perforation or infection, and after all pertinent questions were answered to the patient's satisfaction, the patient/relatives signed witnessed informed consent. Following this, premedication was administered slowly IV push under careful cardiovascular and respiratory monitoring with pulse oximetry, automatic blood pressure and court monitor. Once the sedative effect was achieved the patient was place in the left lateral decubitus, the panendoscope was introduced and advanced under visual control. Careful examination of the upper gastrointestinal tract, both on insertion as well as withdrawal of the instrument disclosed the following findings: ESOPHAGUS: The mucosa of the entire esophagus appears within normal limits. There is no evidence of esophagitis, varices, neoplasm or stricture. No hiatal hernia identified. STOMACH: Upon entrance to stomach, air was insufflated. The gastric drummond distended normally. A very large 4 cm pedunculated polyp was noted in the fundus of the stomach. A second polyp measuring 10 mm was noted in the midbody of the stomach. The remainder of the gastric mucosa was unremarkable. PYLORUS: The pylorus appears patent and within normal limits with no evidence of gastric outlet obstruction. DUODENUM: The duodenal mucosa was carefully examined in the duodenal bulb as well as the second portion of the duodenum and appears unremarkable with no evidence of duodenitis, ulcer or neoplasm. At this point, the instrument was brought back into the area of the stomach. The smaller polyp was removed with a polypectomy snare, and following this, the larger polyp was engaged. This was somewhat difficult due to its position, but we were able to secure the pedicle of the polyp and transect it with a combination of cutting and cautery current with Erbe device. As a precautionary measure because of the what appeared to be exposed vessels although no active bleeding was present, 2 clips were placed in the polypectomy site, and the area was injected with submucosal epinephrine. No residual bleeding was noted. We then introduced a net and retrieved the tissue. Unfortunately, the tissue was extremely friable and fragmented. We removed as much as possible. No residual bleeding or evidence of complication was present. The instrument was then withdrawn. The patient tolerated the procedure well and was transferred out of the endoscopy suite awake and in good condition to continue recovery under observation. IMPRESSION: 1. Large 4 cm pedunculated polyp in the fundus, status post snare polypectomy, endoclip placement x2 and epinephrine injection in the area. 2. A 10 mm polyp in the body of the stomach, post snare polypectomy. Tissue was retrieved in a fragmented fashion. 3. Otherwise normal esophagogastroduodenoscopy. 4. These lesions are clearly a very likely explanation to the patient's severe anemia. PLAN: The patient will be placed on PPI double dose and will be kept on a clear liquid diet with close H and H monitoring. Further recommendation will depend on his clinical course as well as review of pathology. Re-evaluation in 8 weeks is advisable. Dictated By: LANDON MENDOZA MS/SOCORRO Conf#: [id number] G.I. LAB PROCEDURE DATE OF PROCEDURE: NAME OF PROCEDURE: Colonoscopy to cecum. SURGEON: Landon Mendoza MD HISTORY AND INDICATIONS: The patient is being evaluated for severe anemia. PREMEDICATION: Monitored anesthesia care by anesthesiologist. TECHNIQUE: After informed consent, with the patient/relatives understanding the procedure, its indications potential risks and complications, including but not limited to: allergic reaction, bleeding, perforation, infection, missed lesions and after all pertinent questions were answered to the patient's satisfaction, the patient/relatives signed the witnessed informed consent. Following this, premedication was administered slowly IV push by under careful cardiovascular and respiratory monitoring with pulse oximetry, automatic blood pressure and court monitor. Once the sedative effect was achieved, the patient was placed in the left lateral decubitus position, digital rectal examination was performed. The colonoscope was then introduced and advanced under visual control throughout all segments of the colon including: the rectum, sigmoid, descending colon, splenic flexure, transverse colon, hepatic flexure, ascending colon and finally reaching the cecum which was clearly identified by transillumination, finger indentation and the ileocecal valve. Careful examination of the mucosa of the lower gastrointestinal tract both on insertion as well as withdrawal of the instrument disclosed the following findings: Rectal Examination: No evidence of perirectal disease, no masses. Colonic Mucosa: The colonic mucosa unremarkable throughout. The ileocecal valve was clearly identified and appears unremarkable. The instrument was withdrawn, re-examining the mucosa in detail. No additional abnormalities are noted with exception of moderate-sized internal hemorrhoids. The instrument was then withdrawn. The patient tolerated the procedure well and was transferred out of the Endoscopy Suite awake and in good condition to continue recovery under observation. IMPRESSION: 1. Normal colonic mucosa to cecum. 2. Moderate-sized internal hemorrhoids. PLAN: The patient will be continued on present regimen. Colonoscopy in 10 years is advisable. Annual Hemoccult stool testing is also recommended. Dictated By: LANDON MENDOZA MS/SOCORRO Conf#: [id number] DID#: [id number] Hx of Present Illness The patient is a 50-year-old male with no medical history. The patient presents with pressure-like chest pain in his left sternal border. No radiation. The patient has had no previous such symptoms in the past. He has no cardiac history. He has no reported medical history. The patient was at [facility] where he was noted to be pancytopenic with a white count 3.8, hemoglobin of 5.8. The patient has no history of any known anemia. Denies any GI bleed, any melena, any nausea, vomiting. He states for now that his chest pain is resolved. Hospital Course Patient is a 50 year old male with symptomatic anemia, Hgb 7.2. - Iron panel consistent with iron deficiency with Fe 65, TIBC 449, %sat 14%. Will order ferritin. Severe microcytosis with elevated RDW also supports iron deficiency anemia. Paient had unremarkable colonoscopy but EGD revealed two large polyps in stomach that was resected. H/H has been stable after admission. Patient will take double dose of protonix and follow up with PCP and GI outpatient. Home Meds Reported Medications [Diabitic] No Conflict Check 09/11/15 [Htn] No Conflict Check 09/11/15 Follow-up Plan PCP [address] Mendoza 2 weeks Pending Labs Laboratory Tests Test 02/29/16 00:38 02/29/16 06:35 02/29/16 06:50 Hematocrit 28.7% (42.0-52.0) 29.1% (42.0-52.0) Hemoglobin 9.0g/dl (14.0-18.0) 9.0g/dl (14.0-18.0) Absolute Reticulocyte Count 0.099X10^6 (0.020-0.110) Alanine Aminotransferase (ALT/SGPT) 47IU/L (13-69) Albumin 4.1g/dl (3.3-4.9) Albumin/Globulin Ratio 1.10 Alkaline Phosphatase 108IU/L (42-121) Anion Gap 19 (8-16) Aspartate Amino Transf (AST/SGOT) 39IU/L (15-46) Blood Urea Nitrogen 29mg/dl (7-20) Calcium Level 9.0mg/dl (8.4-10.2) Carbon Dioxide Level 26mmol/L (21-31) Chloride Level 101mmol/L (97-110) Creatinine 0.99mg/dl (0.61-1.24) Direct Bilirubin 0.00mg/dl (0.00-0.20) Ferritin 8.6ng/ml (11.1-264.0) Globulin 3.70g/dl (1.3-3.2) Glucose Level 94mg/dl (70-220) Indirect Bilirubin 2.0mg/dl (0-1.1) Iron Level 21ug/dl (35-150) Lactate Dehydrogenase 470IU/L (313-618) Percent Iron Saturation 4% SAT (22-52) Percent Reticulocyte Count 2.3% (0.5-1.5) Potassium Level 4.6mmol/L (3.5-5.1) Sodium Level 141mmol/L (135-144) Total Bilirubin 2.0mg/dl (0.2-1.3) Total Iron Binding Capacity 491ug/dl (241-421) Total Protein 7.8g/dl (6.1-8.1) Anisocytosis 2+ Blood Morphology Comment Differential Comment MANUAL DIFF Hypochromasia 2+ Large Platelets OCCASIONAL Lymphocytes # 0.810^3/ul (0.8-2.9) Lymphocytes % 15.0% (15.0-51.0) Mean Corpuscular Hemoglobin 20.7pg (29.0-33.0) Mean Corpuscular Hemoglobin Concent 30.9g/dl (32.0-37.0) Mean Corpuscular Volume 67.1fl (82.0-101.0) Mean Platelet Volume 8.8fl (7.4-10.4) Microcytosis 2+ Monocytes # 0.410^3/ul (0.3-0.9) Monocytes % 7.0% (0.0-11.0) Neutrophils # 4.410^3/ul (1.6-7.5) Neutrophils % 78.0% (39.0-77.0) Platelet Count 80564^3/UL (140-440) Red Blood Count 4.3310^6/ul (4.70-6.10) Red Cell Distribution Width 24.5% (11.5-14.5) White Blood Count 5.610^3/ul (4.8-10.8) KEV DUMAS MD Feb 29, 2016 13:42
[2016-02-29] MEDS ORDERED: PANT40TA3 PO (13:46)
[2016-02-29 14:08] LABS: HEMATOCRIT 28.2 % (42.0-52.0); HEMOGLOBIN 8.8 g/dl (14.0-18.0)
--- NOTE | 2016-02-29 14:17 | CONS ---
Date/Time of Note Date/Time of Note DATE: 02/29/16 TIME: 14:14 Assessment/Plan Assessment/Plan Additional Assessment/Plan Severe anemia * Monitor H&H every 6 hours, transfuse 2 units for hemoglobin less than 7.5 * Status post EGD 02-28-16 * 1. Large 4 cm pedunculated polyp in the fundus, status post snare polypectomy, endoclip placement x2 and epinephrine injection in the area. * 2. A 10 mm polyp in the body of the stomach, post snare polypectomy. Tissue was retrieved in a fragmented fashion. * 3. Otherwise normal esophagogastroduodenoscopy. * 4. These lesions are clearly a very likely explanation to the patient's severe anemia. * Status post colonoscopy 02-28-16 * 1. Normal colonic mucosa to cecum. * 2. Moderate-sized internal hemorrhoids. Chest pain/negative troponins Further recommendations depend on clinical course Patient seen in collaboration with Dr. Mendoza Patient stable from GI standpoint Consultation Date/Type/Reason Admit Date/Time Feb 26, 2016 at 00:14 Initial Consult Date 02/28/16 Type of Consultation: Gastroenterology 24 HR Interval Summary Free Text/Dictation Hemoglobin stable Tolerating diet Exam/Review of Systems Vital Signs Vitals Vital Signs Date Time Temp Pulse Resp B/P Pulse Ox O2 Delivery O2 Flow Rate FiO2 02/29/16 12:04 91 02/29/16 11:01 98.6 20 130/77 93 02/28/16 18:50 Nasal Cannula 2.0 Intake and Output 02/28/16 02/28/16 02/29/16 15:00 23:00 07:00 Intake Total 0 ml Balance 0 ml Exam Constitutional: alert, oriented, well developed Psych: nl mood/affect, no complaints Head: atraumatic, normocephalic Eyes: EOMI, PERRL, nl conjunctiva, nl lids, nl sclera ENMT: nl external ears & nose, nl lips & teeth, nl nasal mucosa & septum Neck: non-tender, supple Respiratory: clear to auscultation, normal air movement Cardiovascular: nl pulses, regular rate and rhythm Gastrointestinal: nl liver, spleen, non-tender, soft Musculoskeletal: nl extremities to inspection, nl gait and stance Extremities: normal pulses Neurological: CARD GRINDER II-XII intact, nl mental status, nl speech, nl strength Skin: nl turgor, No rash or lesions Lymph: nl lymph nodes Results Result Diagram: 02/29/16 1240 02/29/16 0635 Results 24 hrs Laboratory Tests Test 02/29/16 00:38 02/29/16 06:35 02/29/16 06:50 02/29/16 12:40 Hematocrit 28.7 L 29.1 L 28.2 L Hemoglobin 9.0 L 9.0 L 8.8 L Absolute Reticulocyte Count 0.099 Alanine Aminotransferase (ALT/SGPT) 47 Albumin 4.1 Albumin/Globulin Ratio 1.10 Alkaline Phosphatase 108 Anion Gap 19 H Aspartate Amino Transf (AST/SGOT) 39 Blood Urea Nitrogen 29 H Calcium Level 9.0 Carbon Dioxide Level 26 Chloride Level 101 Creatinine 0.99 Direct Bilirubin 0.00 Ferritin 8.6 L Globulin 3.70 H Glucose Level 94 Indirect Bilirubin 2.0 H Iron Level 21 L Lactate Dehydrogenase 470 Percent Iron Saturation 4 L Percent Reticulocyte Count 2.3 H Potassium Level 4.6 Sodium Level 141 Total Bilirubin 2.0 H Total Iron Binding Capacity 491 H Total Protein 7.8 Anisocytosis 2+ Blood Morphology Comment Differential Comment MANUAL DIFF Hypochromasia 2+ Large Platelets OCCASIONAL Lymphocytes # 0.8 Lymphocytes % 15.0 Mean Corpuscular Hemoglobin 20.7 L Mean Corpuscular Hemoglobin Concent 30.9 L Mean Corpuscular Volume 67.1 L Mean Platelet Volume 8.8 Microcytosis 2+ Monocytes # 0.4 Monocytes % 7.0 Neutrophils # 4.4 Neutrophils % 78.0 H Platelet Count 168 Red Blood Count 4.33 L Red Cell Distribution Width 24.5 H White Blood Count 5.6 # Medications Medications Current Medications Ondansetron HCl (Zofran Inj) 4 mg Q6H PRN IV NAUSEA AND/OR VOMITING; Start 02/25 at 03:00 Acetaminophen (Tylenol Tab) 650 mg Q6H PRN PO PAIN LEVEL 1-3 OR FEVER; Start at 03:00 Acetaminophen/ Hydrocodone Bitart ([place] (5/325)) 1 tab Q6H PRN PO MODERATE PAIN LEVEL 4-6; Start 02/26/16 at 03:00 Morphine Sulfate (morphine) 2 mg Q4H PRN IV SEVERE PAIN LEVEL 7-10; Start at 03:00 Docusate Sodium (Colace) 100 mg Q12H PRN PO CONSTIPATION; Start 02/26/16 at 03: 00 Zolpidem Tartrate (Ambien) 5 mg QHS PRN PO SLEEP; Start 02/26/16 at 03:00 Nitroglycerin 1 tab 1 tab Q5M PRN SL CHEST PAIN; Start 02/26/16 at 03:00 Pantoprazole/ Sodium Chloride (Protonix Iv/NS) 100 ml @ 10 mls/hr Q10H IV Last administered on 02/29/16t 04:31; Admin Dose 10 MLS/HR; Start 02/28/16 at 18 :30 OSMAN TALAMANTES Feb 29, 2016 14:17
[2016-02-29 18:12] LABS: HEMATOCRIT 29.2 % (42.0-52.0); HEMOGLOBIN 9.1 g/dl (14.0-18.0)
[2016-03-02 09:05] LABS: WHITE BLOOD COUNT 5.6 10^3/ul (4.8-10.8)
== END 2016-02-29 18:07 | disposition home or self-care (01) | DRG 394 ==
LOC: TEL 00:14
PROVIDERS: ADMIT Internal Medicine; ATTEND Internal Medicine
PROC: 0DB68ZZ Excision of Stomach, Via Natural or Artificial Opening Endoscopic (ICD-10-PCS; principal; 2016-02-28 19:00)
PROC: 3E0G8GC Introduction of Other Therapeutic Substance into Upper GI, Via Natural or Artificial Opening Endoscopic (ICD-10-PCS; 2016-02-28 19:00)
PROC: 0DJD8ZZ Inspection of Lower Intestinal Tract, Via Natural or Artificial Opening Endoscopic (ICD-10-PCS; 2016-02-28 19:00)
DX: D13.1 Benign neoplasm of stomach (principal); K92.2 Gastrointestinal hemorrhage, unspecified; R07.89 Other chest pain; K64.8 Other hemorrhoids; D50.0 Iron deficiency anemia secondary to blood loss (chronic)
CPT/HCPCS: 80053; 80061; 80076; 82270; 82607; 82728; 82746; 83010; 83036; 83540; 83615; 83735; 84484; 85014; 85018; 85025; 85045; 86703; 86704; 86709; 86803; 86880; 86885; 87340; 88305; 93306; C9113; J0171; J2250; J3010

== ENCOUNTER 2016-10-18 22:45 | Inpatient (IN) | payer OTHER ==
[~2016-10-18] VITALS: Ht 154.9 cm; Wt 83.6 kg
[~2016-10-18 22:45] MED LIST changes: +PANT40TA3 PO
[2016-10-19] VITALS (12 sets, daily range): BP systolic 113–142; BP diastolic 67–75; PULSE 82–106; RESP 18–20; Ht 154.9 cm; Wt 83.6 kg
[2016-10-19] MEDS ORDERED: ONDANSETRON 4 MG INJ IV PRN (02:00)
[2016-10-19] MEDS ORDERED: ACETAMINOPHEN 325 MG TAB PO PRN (02:00)
[2016-10-19] MEDS ORDERED: VANCOMYCIN IV PER PHARMACY XX SCH (02:00)
[2016-10-19 02:27] LABS: ABNORMAL IP MESSAGE 1; BASOPHILS % 0.2 % (0.0-2.0); HEMATOCRIT 35.9 % (42.0-52.0); HEMOGLOBIN 12.9 g/dl (14.0-18.0); LYMPHOCYTES # 0.4 10^3/ul (0.8-2.9); LYMPHOCYTES % 3.9 % (15.0-51.0); MEAN CORPUSCULAR HEMOGLOBIN 30.1 pg (29.0-33.0); MEAN CORPUSCULAR HGB CONC 35.9 g/dl (32.0-37.0); MEAN CORPUSCULAR VOLUME 83.9 fl (82.0-101.0); MEAN PLATELET VOLUME 12.2 fl (7.4-10.4); MONOCYTE # 0.8 10^3/ul (0.3-0.9); MONOCYTES % 6.9 % (0.0-11.0); NEUTROPHILS % 88.6 % (39.0-77.0); PLATELET COUNT 95 10^3/UL (140-415); POSITIVE DIFF @See below; RED BLOOD COUNT 4.28 10^6/ul (4.70-6.10); RED CELL DISTRIBUTION WIDTH 13.7 % (11.5-14.5); WHITE BLOOD COUNT 11.2 10^3/ul (4.8-10.8)
[2016-10-19] MEDS: SOD CHLORIDE 0.9% 1,000 ML IV SCH ×3 (02:28→21:21)
[2016-10-19 02:46] LABS: ALBUMIN 3.2 g/dl (3.3-4.9); ALBUMIN/GLOBULIN RATIO 1.14; BILIRUBIN,INDIRECT 1.1 mg/dl (0-1.1); BILIRUBIN,TOTAL 1.1 mg/dl (0.2-1.3); CALCIUM 7.4 mg/dl (8.4-10.2); CREATININE 0.99 mg/dl (0.61-1.24); MAGNESIUM 1.4 mg/dl (1.7-2.5); PHOSPHORUS 3.4 mg/dl (2.5-4.9); POTASSIUM 3.4 mmol/L (3.5-5.1)
[2016-10-19] MEDS ORDERED: VANCOMYCIN 1.5 GM in SOD CHLORIDE 0.9% 250 ML IVPB ONE (03:00)
[2016-10-19] MEDS ORDERED: POTASSIUM CHLORIDE (SR) 20 MEQ TAB PO STA (07:00)
--- NOTE | 2016-10-19 07:06 | HP ---
Date/Time of Note Date/Time of Note DATE: 10/19/16 TIME: 07:00 Assessment/Plan VTE Prophylaxis VTE Prophylaxis Intervention: SCD's Lines/Catheters IV Catheter Type (from Nrsg): Peripheral IV Assessment/Plan Assessment/Plan 1. SIRS, with fever, tachycardia and leukocytosis (per outside hospital record) : No source of infection so far with a negative urinalysis and chest x-ray. Symptom can possibly be secondary to heat stroke. -Empiric IV antibiotic -Follow-up urine culture and blood culture results - Pain management as needed 2. Mild hypokalemia -Replete HPI/ROS Admit Date/Time Admit Date/Time Oct 19, 2016 at 00:42 Hx of Present Illness This is a 51-year-old male with a history of developmental delay who actually presented to [facility] complaining of fever, generalized weakness and the dizziness. He reported he was working outside age when he started experiencing the symptoms. Denied cough, chest pain, shortness of breath, urinary symptoms, focal weakness, headache, neck stiffness or loss of consciousness. While he was at the outside hospital, he was febrile with a temperature of 103 and tachycardic with a heart rate in the 120s. EKG was actually done which showed sinus tachycardia with a rate of 146. Urinalysis was no sign of UTI and chest x-ray no infiltrate or consolidation. . PMH/Family/Social Past Surgical History Past Surgical Hx: no surgical history Social History Smoking Status: Never smoker Exam/Review of Systems Vital Signs Vitals Vital Signs Date Time Temp Pulse Resp B/P Pulse Ox O2 Delivery O2 Flow Rate FiO2 10/19/16 04:00 94 10/19/16 03:28 98.1 20 131/67 98 10/19/16 01:00 Nasal Cannula 2.0 Exam Constitutional: alert, well developed Head: atraumatic, normocephalic Eyes: EOMI, PERRL Respiratory: clear to auscultation, normal air movement Cardiovascular: other (Tachycardic with regular rhythm) Gastrointestinal: non-tender, soft Extremities: normal pulses Labs Result Diagram: 10/19/16 02010/19/16 020 Medications Medications Current Medications Cefepime HCl (Maxipime 1gm/50 ml (Pmx)) 50 ml @ 100 mls/hr Q12 IVPB ; Start 10/19/16 at 09:00 Ondansetron HCl (Zofran Inj) 4 mg Q6H PRN IV NAUSEA AND/OR VOMITING; Start 10/19 at 02:00 Acetaminophen 650 mg 650 mg Q6H PRN PO PAIN AND OR ELEVATED TEMP; Start at 02:00 Sodium Chloride (NS) 1,000 ml @ 100 mls/hr Q10H IV Last administered on t 02:28; Admin Dose 100 MLS/HR; Start 10/19/16 at 02:00; Stop 10/20/16 at 02:00 Enoxaparin Sodium 40 mg 40 mg DAILY SC ; Start 10/19/16 at 09:00 Vancomycin HCl/ Sodium Chloride (Vancocin/NS) 250 ml @ 83.333 mls/ hr Q12H IVPB ; Start 10/19/16 at 15:00 AILEEN STEVEN MD Oct 19, 2016 07:06
[2016-10-19] MEDS: CEFEPIME 1GM/50 ML (PMX) 50 ML IVPB SCH ×2 (08:00→21:21)
[2016-10-19] MEDS: ENOXAPARIN 40 MG/0.4 ML SYG SC SCH (09:00)
[2016-10-19 11:26] LABS: ADD UMIC NO; UR ASCORBIC ACID NEGATIVE (NEGATIVE); UR BILIRUBIN (Dip) NEGATIVE (NEGATIVE); UR BLOOD (Dip) NEGATIVE (NEGATIVE); UR CLARITY SLIGHTLY CLOUDY (CLEAR); UR COLOR YELLOW (YELLOW); UR GLUCOSE (Dip) NEGATIVE (NEGATIVE); UR KETONES (Dip) NEGATIVE (NEGATIVE); UR LEUKOCYTE ESTERASE (Dip) NEGATIVE Leu/ul (NEGATIVE); UR MUCUS FEW /HPF (NONE SEEN); UR NITRITE (Dip) NEGATIVE (NEGATIVE); UR RBC 1 /HPF (0-5); UR SPECIFIC GRAVITY (Dip) 1.025 (1.003-1.030); UR SQUAMOUS EPITHELIAL CELL FEW /HPF (FEW); UR TOTAL PROTEIN (Dip) NEGATIVE (NEGATIVE); UR UROBILINOGEN (Dip) NEGATIVE (NEGATIVE)
--- NOTE | 2016-10-19 12:54 | RADRPT ---
PROCEDURE: XR Chest. CLINICAL INDICATION: Chest pain. Pneumonia. TECHNIQUE: Single frontal chest x-ray. COMPARISON: None. FINDINGS: The lungs are clear. No focal opacification is seen. The aorta is within normal limits. The cardi ac silhouette is magnified. The osseous structures are unremarkable. IMPRESSION: 1. No acute infiltrate. RPTAT: QQ .John Reynoso MD, MD Date Time Electronically viewed and signed by .John Reynoso MD, MD on 10/19/2016 12:53 .d/
[2016-10-19] MEDS: VANCOMYCIN 1.25 GM in SOD CHLORIDE 0.9% 250 ML IVPB SCH (14:49)
[2016-10-20] VITALS (12 sets, daily range): BP systolic 118–159; BP diastolic 67–87; PULSE 67–73; RESP 18–21
[2016-10-20] MEDS: VANCOMYCIN 1.25 GM in SOD CHLORIDE 0.9% 250 ML IVPB SCH ×2 (02:48→15:31)
[2016-10-20 06:59] LABS: ABNORMAL IP MESSAGE 1; BASOPHILS % 0.2 % (0.0-2.0); EOSINOPHILS # 0.1 10^3/ul (0.0-0.5); EOSINOPHILS % 0.8 % (0.0-7.0); HEMATOCRIT 36.4 % (42.0-52.0); HEMOGLOBIN 12.8 g/dl (14.0-18.0); LYMPHOCYTES # 0.6 10^3/ul (0.8-2.9); LYMPHOCYTES % 9.2 % (15.0-51.0); MEAN CORPUSCULAR HEMOGLOBIN 29.6 pg (29.0-33.0); MEAN CORPUSCULAR HGB CONC 35.2 g/dl (32.0-37.0); MEAN CORPUSCULAR VOLUME 84.1 fl (82.0-101.0); MEAN PLATELET VOLUME 12.4 fl (7.4-10.4); MONOCYTE # 0.5 10^3/ul (0.3-0.9); MONOCYTES % 8.4 % (0.0-11.0); NEUTROPHILS % 81.1 % (39.0-77.0); POSITIVE DIFF @See below; RED BLOOD COUNT 4.33 10^6/ul (4.70-6.10); RED CELL DISTRIBUTION WIDTH 13.4 % (11.5-14.5); WHITE BLOOD COUNT 6.3 10^3/ul (4.8-10.8)
[2016-10-20 07:14] LABS: PLATELET COUNT 87 10^3/UL (140-415)
[2016-10-20 07:21] LABS: CALCIUM 7.4 mg/dl (8.4-10.2); CREATININE 0.85 mg/dl (0.61-1.24); POTASSIUM 3.5 mmol/L (3.5-5.1)
[2016-10-20] MEDS: CEFEPIME 1GM/50 ML (PMX) 50 ML IVPB SCH ×2 (08:56→20:37)
[2016-10-20] MEDS: ENOXAPARIN 40 MG/0.4 ML SYG SC SCH (08:59)
--- NOTE | 2016-10-20 09:41 | PDOCDIS ---
Discharge Instructions DIAGNOSIS Discharge Diagnosis 1. Sirs likely secondary to dehydration 2. Mild hypokalemia CONDITION Patient Condition: Stable HOME CARE INSTRUCTIONS: Diet Instructions: Low Fat /Cholesterol FOLLOW UP/APPOINTMENTS Follow-up Plan 1. Follow-up with primary care provider within a week OTHER ORDERS: Other Orders: 1. Increase your oral intake of water RADHA SCHUMACHER Oct 20, 2016 09:41
[2016-10-20] MEDS ORDERED: PANTOPRAZOLE (EC) 40 MG TAB PO ONE (14:00)
--- NOTE | 2016-10-20 19:54 | PN ---
Date/Time of Note Date/Time of Note DATE: 10/20/16 TIME: 19:49 Assessment/Plan VTE Prophylaxis VTE Prophylaxis Intervention: SCD's Lines/Catheters [facility] Per[facility] IV Urinary Cath still in place: No Assessment/Plan Chief Complaint/Hosp Course Assessment and plan 1. SIRS with fever and tachycardia with no real source. Likely secondary to dehydration. Status post IV fluids. Appears improved at this time. 2. Abdominal pain. Etiology unknown. Patient reports having some abdominal pain at times with eating. Will follow up with abdominal imaging. 3. Hypokalemia. Monitor and replete as needed. Disposition plan: Still noted with abdominal pain and at times eating. Follow- up on abdominal imaging. Anticipate discharge within the next 24 hours if medically stable Discussed plan of care with Dr. Woodard Problems: Subjective 24 Hr Interval Summary Free Text/Dictation Reports having abdominal pain. More on umbilical area. Exam/Review of Systems Vital Signs Vitals Vital Signs Date Time Temp Pulse Resp B/P Pulse Ox O2 Delivery O2 Flow Rate FiO2 10/20/16 17:14 69 10/20/16 15:46 98.1 18 140/83 96 10/19/16 20:25 Nasal Cannula 2.0 Intake and Output 10/19/16 10/19/16 10/20/16 15:00 23:00 07:00 Intake Total 1550 ml 360 ml Output Total 600 ml 650 ml Balance 950 ml -290 ml Exam Constitutional: alert, oriented Psych: nl mood/affect Respiratory: clear to auscultation Cardiovascular: regular rate and rhythm Gastrointestinal: soft, tender Musculoskeletal: nl extremities to inspection Neurological: CONTENT CURATOR II-XII intact, nl mental status, nl speech Skin: nl turgor Results Result Diagram: 10/20/16 0625 10/20/16 0625 Results 24 hrs Laboratory Tests Test 10/20/16 06:25 10/20/16 14:15 White Blood Count 6.3 # Red Blood Count 4.33 L Hemoglobin 12.8 L Hematocrit 36.4 L Mean Corpuscular Volume 84.1 Mean Corpuscular Hemoglobin 29.6 Mean Corpuscular Hemoglobin Concent 35.2 Red Cell Distribution Width 13.4 Platelet Count 87 L Mean Platelet Volume 12.4 H Neutrophils % 81.1 H Lymphocytes % 9.2 L Monocytes % 8.4 Eosinophils % 0.8 Basophils % 0.2 Nucleated Red Blood Cells % 0.0 Neutrophils # (Manual) 5.1 Lymphocytes # 0.6 L Monocytes # 0.5 Eosinophils # 0.1 Basophils # 0.0 Nucleated Red Blood Cells # 0.0 Sodium Level 136 Potassium Level 3.5 Chloride Level 106 Carbon Dioxide Level 25 Anion Gap 9 Blood Urea Nitrogen 14 Creatinine 0.85 Glucose Level 125 Calcium Level 7.4 L Vancomycin Level Trough 8.1 L Medications Medications Current Medications Cefepime HCl (Maxipime 1gm/50 ml (Pmx)) 50 ml @ 100 mls/hr Q12 IVPB Last administered on 10/20/16 08:56; Admin Dose 100 MLS/HR; Start 10/19/16 at 09:00 Ondansetron HCl (Zofran Inj) 4 mg Q6H PRN IV NAUSEA AND/OR VOMITING; Start 10/19 at 02:00 Acetaminophen (Tylenol Tab) 650 mg Q6H PRN PO PAIN AND OR ELEVATED TEMP; Start 10/19/16 at 02:00 Enoxaparin Sodium 40 mg 40 mg DAILY SC Last administered on 10/20/16 08:59; Admin Dose 40 MG; Start 10/19/16 at 09:00 Vancomycin HCl 1.25 gm/Sodium Chloride 250 ml @ 83.333 mls/ hr Q12H IVPB Last administered on 10/20/16 15:31; Admin Dose 83.333 MLS/HR; Start 10/19/16 at 15:00 ; Stop 10/20/16 at 20:00 Vancomycin HCl (Vancocin) 250 ml @ 125 mls/hr Q8H IVPB ; Start 10/21/16 at 00:00 RADHA SCHUMACHER Oct 20, 2016 19:54
[2016-10-20] MEDS: VANCOMYCIN 1 GM in NS 250 ML IVPB SCH (23:33)
[2016-10-21] VITALS (8 sets, daily range): BP systolic 135–145; BP diastolic 74–79; PULSE 59–76; RESP 18–20
[2016-10-21 08:07] LABS: ABNORMAL IP MESSAGE 1; BASOPHILS % 0.2 % (0.0-2.0); EOSINOPHILS # 0.1 10^3/ul (0.0-0.5); EOSINOPHILS % 0.9 % (0.0-7.0); HEMATOCRIT 37.3 % (42.0-52.0); HEMOGLOBIN 13.2 g/dl (14.0-18.0); LYMPHOCYTES # 0.5 10^3/ul (0.8-2.9); LYMPHOCYTES % 9.9 % (15.0-51.0); MEAN CORPUSCULAR HEMOGLOBIN 28.8 pg (29.0-33.0); MEAN CORPUSCULAR HGB CONC 35.4 g/dl (32.0-37.0); MEAN CORPUSCULAR VOLUME 81.3 fl (82.0-101.0); MEAN PLATELET VOLUME 12.4 fl (7.4-10.4); MONOCYTE # 0.5 10^3/ul (0.3-0.9); MONOCYTES % 9.9 % (0.0-11.0); NEUTROPHILS % 78.9 % (39.0-77.0); PLATELET COUNT 107 10^3/UL (140-415); POSITIVE DIFF @See below; RED BLOOD COUNT 4.59 10^6/ul (4.70-6.10); RED CELL DISTRIBUTION WIDTH 13.4 % (11.5-14.5); WHITE BLOOD COUNT 5.4 10^3/ul (4.8-10.8)
[2016-10-21 08:30] LABS: CALCIUM 8.1 mg/dl (8.4-10.2); CREATININE 0.73 mg/dl (0.61-1.24); POTASSIUM 3.2 mmol/L (3.5-5.1)
[2016-10-21] MEDS: CEFEPIME 1GM/50 ML (PMX) 50 ML IVPB SCH (08:54)
[2016-10-21] MEDS: ENOXAPARIN 40 MG/0.4 ML SYG SC SCH (08:57)
[2016-10-21] MEDS: VANCOMYCIN 1 GM in NS 250 ML IVPB SCH (10:07)
--- NOTE | 2016-10-21 11:06 | RADRPT ---
PROCEDURE: XR Abdomen. CLINICAL INDICATION: Abdominal pain TECHNIQUE: Two views of the abdomen are available for review. COMPARISON: None. FINDINGS: The bowel gas pattern is normal. There is no evidence of obstruction. There are no abnormal calcific ations overlying the urinary tracts. The osseous structures are unremarkable with exception of spina bifida occulta of the L5 posterior elements. IMPRESSION: 1. Unremarkable abdomen x-ray series. 2. No evidence for bowel obstruction or free air. RPTAT: PP .Art Fried MD, MD Date Time Electronically viewed and signed by .Art Fried MD, on 10/21/2016 11:05 .B/
[2016-10-21] MEDS ORDERED: POTASSIUM CHLORIDE (SR) 20 MEQ TAB PO STA (11:51)
--- NOTE | 2016-10-22 07:30 | DS ---
DATE OF ADMISSION: 10/19/2016 DATE OF DISCHARGE: 10/21/2016 FINAL DIAGNOSES: 1. Systemic inflammatory response syndrome. Underlying infectious etiology ruled out. 2. Abdominal pain, resolved. 3. Hypokalemia, resolved. 4. Microcytic hypochromic anemia. HOSPITAL COURSE: This is a 51-year-old male, who actually presented to [facility] emergency room complaining of fever, generalized weakness and dizziness. The patient verbalized that he was working outside and he started experiencing symptoms. There was no reported cough, chest pain, dyspnea, urinary symptoms, focal weakness, headache, neck stiffness, or loss of consciousness. While he was at [facility], he was febrile with a temperature of 103 degrees Fahrenheit, and tachycardiac with a heart rate of 126. Urinalysis did not show any evidence of UTI, and chest x-ray negative for any acute infiltration. The patient was transferred to [facility] because of insurance reasons for further management. The patient was started on empiric antibiotics for any underlying infectious etiology. The patient's blood cultures remained negative. The patient's urine culture showed Staph species but it showed evidence of colonization with a colony count of less than 10,000 CFU per mL. The patient was complaining of some abdominal pain. The patient underwent an abdominal x-ray that was negative for any acute findings. Of note, the patient has a history of gastric polyps and he is status post polypectomy on 02/28/2016. The pathology from the biopsy at that time was negative for any malignancy. The patient had no evidence of any infection. The patient's presentation to the outside facility could have been secondary to hyperthermia secondary to heat wave that has been going on for the past few days in [place]. The patient was adequately hydrated. The patient does not require any further inpatient management. The patient's abdominal pain has resolved. The patient is stable to be discharged home to be followed up with his primary care physician. The patient was noticed to have evidence of anemia and thrombocytopenia. The patient underwent a hematology evaluation for his underlying thrombocytopenia and anemia on 02/28/2016, and the patient had no evidence of any underlying malignancy. DISCHARGE DISPOSITION: The patient will be discharged home today. The patient was instructed to resume his home medications. He was instructed to follow up with his primary care physician in one week. The patient was instructed to go to the nearest emergency room or call 911 if he continues to have significant abdominal pain, persistent fevers, or any other unusual signs/numbness. The patient verbalized understanding of his discharge instructions. DISCHARGE CONDITION: Stable. DISCHARGE MEDICATIONS: 1. Protonix 40 mg p.o. b.i.d. PERTINENT LAB AND DIAGNOSTIC DATA: 1. Chest x-ray: No acute infiltrates. 2. Abdominal x-ray: Unremarkable abdominal x-ray series. 3. Latest CBC: WBC 5.4, hemoglobin 13.2, hematocrit 37.3, platelet count 107. 4. Latest BMP: Sodium 134, potassium 3.2, chloride 103, carbon dioxide 25, anion gap 9, BUN 11, creatinine 0.73, glucose 120, calcium 8.1, magnesium 2.1. Come back to her via the 11 diagnosed at. 5. Blood culture times 2 negative. 6. Urine culture positive for Staph aureus with a colony count of less than 10,000 CFU per mL. The case and management of this patient was fully discussed with Dr. Beckham. Approximately 35 minutes was spent on coordinating the discharge of this patient. Dictated By: Deng Cagle NP /herson/chirag /Document#: [id number]
== END 2016-10-21 15:00 | disposition home or self-care (01) | DRG 923 ==
LOC: MS4 10-19 00:42
PROVIDERS: ADMIT Internal Medicine; ATTEND Internal Medicine
DX: T67.0XXA Heatstroke and sunstroke, initial encounter (principal); R65.10 Systemic inflammatory response syndrome (SIRS) of non-infectious origin without acute organ dysfunction; D69.6 Thrombocytopenia, unspecified; E86.0 Dehydration; E87.6 Hypokalemia; R10.9 Unspecified abdominal pain; D50.9 Iron deficiency anemia, unspecified; X58.XXXA Exposure to other specified factors, initial encounter
CPT/HCPCS: 71010; 74000; 80048; 80053; 80202; 81001; 81003; 83735; 84100; 85025; 87040; 87086; J0692; J1650; J3370; J7030; J7050